=== PATIENT | female | born 1945 | race Caucasian/White ===

== ENCOUNTER 2017-06-06 22:00 | Inpatient (IN) | payer OTHER, BC ==
[~2017-06-06] VITALS: Ht 167.6 cm; Wt 81.0 kg
[~2017-06-06 22:00] MED LIST: AGGRENOX1 CAPSULE PO; Antivert PO; FLEXERIL10 MG PO; LOVAZA1 GM PO; METFORMIN HCL850 MG PO; PERCOCET 5/31 TABLET PO; PLAVIX75 MG PO; SENNA8.6 M1 PO; TRICOR48 MG PO; VICODIN 5-3001 EACH PO; VITAMIN D400 UNIT PO; ZESTRIL20 MG PO
[2017-06-06 22:52] LABS: MCH 30.1 PG (29.0-34.0); MCHC 33.7 G/DL (30.0-36.0); MCV 89.3 FL (83-99); MEAN PLAT.VOLUME 10.1 uM^3 (9.5-12.4); PLATELET COUNT 162 K/uL (156-360); RBC DIS.WIDTH-CV 12.9 % (11.8-14.6); RBC DIS.WIDTH-SD 42.5 % (39-53); RED BLOOD COUNT 4.59 M/uL (3.80-5.20); WHITE BLOOD COUNT 11.2 K/uL (4.1-10.2)
[2017-06-06 22:54] LABS: ADD MIUA? YES; BILIRUBIN NEGATIVE; BLOOD NEGATIVE; COLOR YELLOW ((YELLOW)); GLUCOSE (STRIP) NEGATIVE; KETONES NEGATIVE; LEUKOCYTES MODERATE; NITRITE POSITIVE; PROTEIN (STRIP) 30; SPECIFIC GRAVITY 1.016 (1.000-1.030)
[2017-06-06 22:59] LABS: BACTERIA 3+ /HPF; EPITHELIAL CELLS 1+ /HPF; MUCUS 4+ /LPF; RED BLOOD CELLS 0-5 /HPF (0-5); UCUL ADDED? YES; WHITE BLOOD CELLS TNTC /HPF (0-5); WHITE BLOOD CELLS CLUMP RARE /HPF (0-5)
[2017-06-06 23:03] LABS: CHLORIDE 103 mEq/L (99-109); POTASSIUM 3.9 mEq/L (3.7-5.4); SODIUM 133 mEq/L (136-147)
[2017-06-06 23:05] LABS: GLUCOSE 146 mg/dL (70-99)
[2017-06-06 23:07] LABS: ANION GAP 11 MEQ/L (2-14); TOTAL BILIRUBIN 0.8 mg/dL (0.0-1.0)
[2017-06-06 23:09] LABS: ALKALINE PHOSPHATASE 57 IU/L (3-129); GFR ESTIMATE (CALCULATED) > 59 mL/min/
[2017-06-06 23:10] LABS: UREA NITROGEN (BUN) 17 mg/dL (9-23)
[2017-06-07] VITALS (7 sets, daily range): BP systolic 102–122; BP diastolic 58–63
[2017-06-07] MEDS ORDERED: FENOFIBRATE54 M1 PO (01:20)
[2017-06-07] MEDS ORDERED: FISH OIL 1,0001 EAC7 PO (01:20)
[2017-06-07] MEDS ORDERED: VITAMIN D31000 UNIT PO (01:21)
[2017-06-07 06:41] LABS: POINT-OF-CARE METER ID UU14162508
[2017-06-07 12:33] LABS: POINT-OF-CARE METER ID UU14162508
[2017-06-07 16:46] LABS: POINT-OF-CARE METER ID UU14162508
[2017-06-07 21:17] LABS: POINT-OF-CARE METER ID UU14162508
[2017-06-08 07:00] VITALS: BP 118/69
[2017-06-08 12:09] LABS: POINT-OF-CARE USER ID PUTDRM
[2017-06-08 15:00] VITALS: BP 119/90
[2017-06-08 16:58] LABS: POINT-OF-CARE USER ID PUTDRM
[2017-06-09] VITALS: BP 110/66
[2017-06-09 08:05] VITALS: BP 134/69
[2017-06-09 16:02] VITALS: BP 133/74
[2017-06-09 23:03] VITALS: BP 127/63
[2017-06-10 07:55] VITALS: BP 133/66
[2017-06-10] MEDS ORDERED: AMPICILLIN TRI500 MG PO (08:25)
== END 2017-06-10 10:05 | disposition home or self-care (01) | DRG 690 ==
LOC: EME 22:00 → 2EAST 06-07 01:10 → EDOF 06-07 01:10 → 2EAST 06-07 02:20
PROVIDERS: Internal Medicine
DX: N10 Acute pyelonephritis (principal); E87.1 Hypo-osmolality and hyponatremia; R11.2 Nausea with vomiting, unspecified; E78.5 Hyperlipidemia, unspecified; B96.20 Unspecified Escherichia coli [E. coli] as the cause of diseases classified elsewhere; I10 Essential (primary) hypertension; E11.9 Type 2 diabetes mellitus without complications; M19.90 Unspecified osteoarthritis, unspecified site; F17.210 Nicotine dependence, cigarettes, uncomplicated; Z88.2 Allergy status to sulfonamides; Z88.7 Allergy status to serum and vaccine; Z86.73 Personal history of transient ischemic attack (TIA), and cerebral infarction without residual deficits; Z87.440 Personal history of urinary (tract) infections
CPT/HCPCS: 71020; 80053; 81003; 82948; 83605; 85027; 87040; 87077; 87086; 87186; 99281; 99285; J0696; J1650; J1815; J7030; J7050